=== PATIENT | male | born 1995 | race Caucasian/White ===

== ENCOUNTER 2019-09-25 13:23 | Outpatient (CLI) | payer OTHER ==
[2019-09-25 14:11] LABS: BASOPHILS # (AUTO) 0.1 10^3/uL (0.0-0.1); BASOPHILS % (AUTO) 1.4 %; EOSINOPHILS # (AUTO) 0.3 10^3/uL (0.0-0.7); EOSINOPHILS % (AUTO) 3.8 %; HGB - HEMOGLOBIN 16.3 g/dL (14.0-18.0); LYMPHOCYTES # (AUTO) 2.7 10^3/uL (1.5-3.5); LYMPHOCYTES % (AUTO) 38.2 %; MEAN CORPUSCULAR HEMOGLOBIN 31.9 pg (27.0-31.0); MEAN CORPUSCULAR HGB CONC 35.4 g/dL (32.0-36.0); MEAN CORPUSCULAR VOLUME 90.2 fL (80.0-94.0); MEAN PLATELET VOLUME 9.8 fL (7.4-11.4); MONOCYTES # (AUTO) 0.7 10^3/uL (0.0-1.0); MONOCYTES % (AUTO) 9.1 %; NEUTROPHILS # (AUTO) 3.4 10^3/uL (1.5-6.6); NEUTROPHILS % (AUTO) 47.2 %; PLT - PLATELET COUNT 255 10^3/uL (130-450); RED BLOOD COUNT 5.11 10^6/uL (4.70-6.10); RED CELL DISTRIBUTION WIDTH 12.6 % (12.0-15.0); WHITE BLOOD COUNT 7.2 x10^3/uL (4.8-10.8)
[2019-09-25 14:24] LABS: CREATININE,URINE 27.1 mg/dL; MICROALBUMIN,URINE 25.8 mg/dL (0-300.0)
[2019-09-25 14:27] LABS: ALBUMIN 4.3 g/dL (3.2-5.5); BILIRUBIN,DIRECT 0.1 mg/dL (0.1-0.5); BILIRUBIN,TOTAL 0.7 mg/dL (0.2-1.0); CALCIUM 9.1 mg/dL (8.5-10.3); CREATININE 0.7 mg/dL (0.6-1.2); PHOSPHORUS 3.4 mg/dL (2.5-4.6); TOTAL PROTEIN 7.4 g/dL (6.7-8.2); URIC ACID 6.5 mg/dL (2.6-7.2)
[2019-09-25 15:16] LABS: CREATININE,URINE 76.5 mg/dL
[2019-09-25 16:33] LABS: RHEUMATOID FACTOR NEGATIVE (Negative)
[2019-09-26 10:24] LABS: HEPATITIS A IGM NON-REACTIVE (NON-REACTIVE); HEPATITIS B SURFACE ANTIGEN NON-REACTIVE (NON-REACTIVE); HEPATITIS C ANTIBODY NON-REACTIVE (NON-REACTIVE)
[2019-09-27 11:45] LABS: ANA SCREEN NEGATIVE (NEGATIVE)
== END 2019-09-25 13:24 | disposition home or self-care (01) ==
LOC: LAB 13:23
PROVIDERS: ATTEND Internal Medicine Nephrology
DX: E23.2 Diabetes insipidus (principal); R80.9 Proteinuria, unspecified; N18.2 Chronic kidney disease, stage 2 (mild); I12.9 Hypertensive chronic kidney disease with stage 1 through stage 4 chronic kidney disease, or unspecified chronic kidney disease
CPT/HCPCS: 36415; 80048; 80074; 80076; 81599; 82043; 82570; 83520; 84100; 84156; 84550; 85025; 86038; 86255; 86334; 86335; 86430

== ENCOUNTER 2019-09-28 14:35 | Outpatient (CLI) | payer OTHER ==
--- NOTE | 2019-09-28 15:24 | Ultrasound Report ---
Reason: PROTEINURIA, KIDNEY DISEASE Procedure Date: 09/28/2019 Accession Number: [id number] / [id number] Procedure: US - Retroperitoneal CPT Code: Final Report FULL RESULT: EXAM: RENAL ULTRASOUND EXAM DATE: 09/28/2019 03:10 PM. CLINICAL HISTORY: Proteinuria, kidney disease. COMPARISON: None. TECHNIQUE: Real-time scanning was performed with static images obtained. FINDINGS: Right Kidney: 10.3 cm. Normal echotexture with no stones, contour-deforming masses, or hydronephrosis. Left Kidney: 10.1 cm. Normal echotexture with no stones, contour-deforming masses, or hydronephrosis. Bladder: Bilateral jets seen. The prevoid bladder volume was 583 cc. The postvoid bladder volume was 51 cc. Other: None. IMPRESSION: Mildly elevated postvoid residual in the bladder. RADIA
== END 2019-09-28 14:36 | disposition home or self-care (01) ==
LOC: DI 14:35
PROVIDERS: ATTEND Internal Medicine Nephrology
DX: N18.2 Chronic kidney disease, stage 2 (mild) (principal); R80.9 Proteinuria, unspecified
CPT/HCPCS: 76770